=== PATIENT | female | born 1955 | race Caucasian/White ===

== ENCOUNTER 2022-02-19 17:05 | Inpatient (IN) | payer MEDICAID, OTHER ==
[~2022-02-19] VITALS: Ht 183.5 cm; Wt 114.8 kg
[2022-02-19] MEDS ORDERED: SODIUM CHLORIDE 0.9% 1,000 ML IV ONE (17:45)
[2022-02-19 18:04] LABS: BASOPHILS % (AUTO) 0.5 % (0.0-2.0); EOSINOPHILS % (AUTO) 1.2 % (1.0-6.0); HEMATOCRIT 45.9 % (36-46); HEMOGLOBIN 15.5 g/dL (12.0-16.0); LYMPHOCYTES # (AUTO) 2.7 K/uL (1.0-4.8); LYMPHOCYTES % (AUTO) 26.3 % (22.0-44.0); MEAN CORPUSCULAR HEMOGLOBIN 30.1 pg (26.0-34.0); MEAN CORPUSCULAR HGB CONC 33.7 G/dL (31.0-37.0); MEAN CORPUSCULAR VOLUME 89 fL (80-100); MONOCYTES # (AUTO) 0.7 K/uL (0.1-1.0); MONOCYTES % (AUTO) 7.2 % (2.0-9.0); NEUTROPHILS # (AUTO) 6.6 K/uL (1.8-7.7); NEUTROPHILS % (AUTO) 64.8 % (40.0-70.0); PLATELET COUNT (AUTO) 231 K/uL (150-450); RED BLOOD CELL COUNT(AUTO) 5.15 MIL/uL (4.00-5.20); RED CELL DISTRIBUTION WIDTH 12.8 % (11.5-14.5)
[2022-02-19 18:19] LABS: COVID AG,FIA SOURCE NASOPHARYNGEAL
[2022-02-19 18:19] LABS: ALANINE AMINOTRANSFERASE 569 U/L (12-78); ALBUMIN 3.7 g/dL (3.4-5.0); ALKALINE PHOSPHATASE 359 U/L (46-116); ANION GAP 8 mmol/L (8-16); ASPARTATE AMINOTRANSFERASE 172 U/L (15-37); BILIRUBIN,TOTAL 0.5 mg/dL (0.1-1.0); CALCIUM, TOTAL 9.4 mg/dL (8.8-10.5); CARBON DIOXIDE 28 mmol/L (22-29); CHLORIDE 101 mmol/L (98-107); CREATININE 0.86 mg/dL (0.60-1.30); POTASSIUM 3.8 mmol/L (3.5-5.1); SODIUM SERUM 137 mmol/L (136-145); TOTAL PROTEIN, SERUM 7.7 g/dL (6.4-8.2); UREA NITROGEN, BLOOD 11 mg/dL (7-18)
[2022-02-19 18:22] LABS: GLOMERULAR FILTR. RATE CALC > 60 mL/min (>60); GLUCOSE,RANDOM 427 mg/dL (70-110)
[2022-02-19] MEDS ORDERED: INSULIN REGULAR, HUMAN 100 UNITS/ML IVP ONE (19:00)
[2022-02-19 19:11] LABS: GLUCOSE,POINT OF CARE 356 MG/DL (70-110)
[2022-02-19] MEDS ORDERED: HydrOXYzine PAMOATE 50 MG CAPSULE PO ONE (20:45)
[2022-02-19 20:46] LABS: GLUCOSE,POINT OF CARE 220 MG/DL (70-110)
[2022-02-19] MEDS ORDERED: HALOPERIDOL 5 MG TABLET PO PRN (22:15)
[2022-02-19] MEDS ORDERED: LORazepam 2 MG TABLET PO PRN (22:15)
[2022-02-19] MEDS ORDERED: ZOLPIDEM TARTRATE 10 MG TABLET PO PRN (22:15)
[2022-02-20 04:03] VITALS: BP 147/57
[2022-02-20] MEDS ORDERED: PNEUMOCOCCAL VACCINE POLYVALENT 0.5 ML VIAL [PPSV23] IM. ONE (06:30)
[2022-02-20] MEDS ORDERED: DEXTROSE 50%-WATER 25 GM/50 ML SYRINGE IVP PRN (06:45)
[2022-02-20] MEDS ORDERED: MAG HYDROX/AL HYDROX/SIMETH ES 30 ML SUSPENSION UDCUP PO PRN (07:00)
[2022-02-20] MEDS ORDERED: OMEPRAZOLE 20 MG CAPSULE PO PRN (07:00)
[2022-02-20] MEDS ORDERED: MAGNESIUM HYDROXIDE SUSPENSION 30 ML UDCUP PO PRN (07:00)
[2022-02-20] MEDS ORDERED: ALBUTEROL SULFATE HFA 90 MCG/PUFF 8 GM INHALER IH PRN (07:00)
[2022-02-20] MEDS ORDERED: DOCUSATE SODIUM 100 MG CAPSULE PO PRN (07:00)
[2022-02-20] MEDS ORDERED: PETROLATUM,WHITE 28 GM JELLY TP PRN (07:00)
[2022-02-20] MEDS ORDERED: BENZOCAINE/MENTHOL LOZENGE PO PRN (07:00)
[2022-02-20] MEDS ORDERED: IBUPROFEN 600 MG TABLET PO PRN (07:00)
[2022-02-20] MEDS ORDERED: LOPERAMIDE HCL 2 MG CAPSULE PO PRN (07:00)
[2022-02-20] MEDS ORDERED: ACETAMINOPHEN 325 MG TABLET PO PRN (07:00)
[2022-02-20] MEDS ORDERED: BACITRACIN 28 GM OINTMENT TP PRN (07:00)
[2022-02-20] MEDS ORDERED: ONDANSETRON HCL 4 MG TABLET PO PRN (07:00)
[2022-02-20] MEDS ORDERED: CloNIDine HCL 0.1 MG TABLET PO PRN (07:00)
[2022-02-20] MEDS: INSULIN LISPRO 100 UNITS/ML SQ PRN ×3 (07:08→17:22)
[2022-02-20 07:16] LABS: GLUCOMETER DEV NAME(LOC) 3E.I 2; GLUCOSE,POINT OF CARE 252 MG/DL (70-110)
[2022-02-20] MEDS: NYSTATIN 15 GM POWDER BOTTLE TP SCH ×2 (11:40→16:22)
[2022-02-20 13:17] LABS: GLUCOMETER DEV NAME(LOC) 3EX.2; GLUCOSE,POINT OF CARE 350 MG/DL (70-110)
[2022-02-20 16:29] VITALS: BP 185/90
[2022-02-20 16:31] LABS: GLUCOMETER DEV NAME(LOC) 3EX.2; GLUCOSE,POINT OF CARE 282 MG/DL (70-110)
[2022-02-20] MEDS ORDERED: ATORVASTATIN CALCIUM 40 MG TABLET PO SCH (18:30)
[2022-02-20] MEDS ORDERED: DILTIAZEM HCL CD 240 MG ER CAPSULE PO SCH (18:30)
[2022-02-20] MEDS ORDERED: LISINOPRIL 20 MG TABLET PO SCH (18:30)
[2022-02-20] MEDS ORDERED: APIXABAN 5 MG TABLET PO SCH (18:30)
[2022-02-20] MEDS ORDERED: MetFORMIN HCL 500 MG TABLET PO SCH (18:30)
[2022-02-20] MEDS ORDERED: AmLODIPine BESYLATE 5 MG TABLET PO SCH (18:30)
[2022-02-20 20:22] VITALS: BP 144/108
[2022-02-20 20:26] LABS: GLUCOMETER DEV NAME(LOC) 3EX.2; GLUCOSE,POINT OF CARE 452 MG/DL (70-110)
[2022-02-20] MEDS ORDERED: INSULIN GLARGINE,HUM.REC.ANLOG 100 UNITS/ML SQ SCH (21:00)
[2022-02-20] MEDS ORDERED: INSULIN LISPRO 100 UNITS/ML SQ ONE (21:00)
[2022-02-21 00:01] LABS: GLUCOMETER DEV NAME(LOC) 5N.1C; GLUCOSE,POINT OF CARE 296 MG/DL (70-110)
[2022-02-21] MEDS ORDERED: INSULIN LISPRO 100 UNITS/ML SQ SCH (07:00)
== END 2022-02-20 22:45 | disposition short-term general hospital (02) | DRG 754 ==
LOC: EMS 17:08 → 3EX 02-20 00:49 → 3EI 02-20 17:57
PROVIDERS: ADMIT Psychiatry & Neurology Psychiatry; ATTEND Psychiatry & Neurology Psychiatry
DX: F32.9 Major depressive disorder, single episode, unspecified (principal); F22 Delusional disorders; R45.851 Suicidal ideations; E11.65 Type 2 diabetes mellitus with hyperglycemia; Z20.822 Contact with and (suspected) exposure to COVID-19; F41.9 Anxiety disorder, unspecified; G47.00 Insomnia, unspecified; I10 Essential (primary) hypertension; I48.91 Unspecified atrial fibrillation; J44.9 Chronic obstructive pulmonary disease, unspecified; K59.00 Constipation, unspecified; Z79.4 Long term (current) use of insulin
CPT/HCPCS: 80053; 82140; 82948; 82962; 84484; 85025; 93005; 99285; G0480; J1815; J7030